=== PATIENT | male | born 1965 | race Caucasian/White ===

== ENCOUNTER 2019-02-18 20:47 | Emergency (ER) | payer MEDICAID, OTHER ==
[~2019-02-18] VITALS: Ht 180.3 cm; Wt 61.2 kg
[2019-02-18] MEDS ORDERED: AUGMENTIN 875 MG TAB (AMOXICILLIN/CLAVULANATE) PO SCH (21:45)
[2019-02-18] MEDS ORDERED: AMOX-358 PO (21:48)
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
[2019-02-18 22:03] VITALS: BP 122/74
== END 2019-02-18 22:02 | disposition home or self-care (01) ==
LOC: ER 20:50
DX: S51.851A Open bite of right forearm, initial encounter (principal); W50.3XXA Accidental bite by another person, initial encounter
CPT/HCPCS: 99283